=== PATIENT | female | born 1990 | race Caucasian/White ===

== ENCOUNTER 2018-07-20 12:14 | Emergency (ER) | payer OTHER, SELFPAY ==
[~2018-07-20] VITALS: Ht 165.1 cm; Wt 79.0 kg
[2018-07-20 12:19] VITALS: BP 135/70
[2018-07-20] MEDS ORDERED: KETOROLAC 60MG/2ML VIAL IM ONE (13:15)
== END 2018-07-20 14:41 | disposition home or self-care (01) ==
LOC: ER 12:14
DX: R51 Headache (principal)
CPT/HCPCS: 81025; 96372; 99283; J1885

== ENCOUNTER 2024-06-25 11:19 | Emergency (ER) | payer SELFPAY ==
[~2024-06-25] VITALS: Ht 165.1 cm; Wt 71.0 kg
[2024-06-25 11:36] VITALS: O2SAT 96
[2024-06-25 11:39] VITALS: BP 136/71; PULSE 77; RESP 16; TEMP 98.1; O2SAT 98
[2024-06-25] MEDS ORDERED: CEPH500C2 MT (12:32)
[2024-06-25] MEDS ORDERED: BACI3.5O5 EACHEYE (12:33)
== END 2024-06-25 14:20 | disposition home or self-care (01) ==
LOC: ER 11:19
DX: R21 Rash and other nonspecific skin eruption (principal)
CPT/HCPCS: 99283

== ENCOUNTER 2024-07-04 10:38 | Emergency (ER) | payer SELFPAY ==
[~2024-07-04] VITALS: Ht 165.1 cm; Wt 71.0 kg
[~2024-07-04 10:38] MED LIST: BACI3.5O5 EACHEYE; CEPH500C2 MT
[2024-07-04 10:44] VITALS: BP 109/75; TEMP 98.3; O2SAT 97
[2024-07-04 10:47] VITALS: PULSE 98; RESP 18; O2SAT 100
[2024-07-04] MEDS ORDERED: CEPH500T MT (11:48)
== END 2024-07-04 11:58 | disposition home or self-care (01) ==
LOC: ER 10:38
DX: L03.115 Cellulitis of right lower limb (principal); F10.90 Alcohol use, unspecified, uncomplicated; Y90.9 Presence of alcohol in blood, level not specified
CPT/HCPCS: 99283